=== PATIENT | male | born 1965 | race Caucasian/White ===

== ENCOUNTER → 2016-12-01 | Outpatient (CLI) | payer BC ==
[~2016-12-01] MED LIST: GADAVIST IV PRN
--- NOTE | 2016-12-01 11:08 | DIAGNOSTIC IMAGING REPORT ---
MRI OF THE BRAIN WITHOUT AND WITH IV CONTRAST CLINICAL HISTORY: DEPRESSION W/anxiety, martin AND MEMORY LOSS COMPARISON STUDY: No previous studies for comparison. TECHNIQUE: Utilizing a 1.5 Elva magnet and dedicated coil, multiplanar, multiecho imaging of the brain was performed pre and postcontrast administration. IV administration of 8 mL of Gadavist contrast was uneventful. FINDINGS: Unremarkable signal characteristics throughout. Ventricular system is midline. Internal artery canals are symmetric. No evidence for abnormal postcontrast enhancement. IMPRESSION: Normal study Electronically signed by: Tito Mehta M.D. 12/01/2016 11:07 AM Dictated Date/Time: 12/01/2016 11:05 AM
== END | disposition home or self-care (01) ==
LOC: C.MRIBC 09:32
PROVIDERS: ATTEND Psychiatry & Neurology Neurology
DX: F41.8 Other specified anxiety disorders (principal); F41.3 Other mixed anxiety disorders; R51 Headache

== ENCOUNTER → 2016-12-05 | Outpatient (CLI) | payer BC ==
[2016-12-05 14:42] LABS: BASO % 0.3 %; BASO ABS # 0.04 K/uL (0-0.2); COMPLETE YES; EOS % 1.6 %; HEMATOCRIT 38.7 % (42-52); IG% 0.2 %; LYMPH % 14.6 %; LYMPH ABS # 1.91 K/uL (1.2-3.4); MEAN CORPUSCULAR HEMOGLOBIN 30.9 pg (25-34); MEAN CORPUSCULAR HGB CONC 35.1 g/dl (32-36); MEAN PLATELET VOLUME 10.1 fL (7.4-10.4); NEUT % 76.3 %; PLATELET COUNT 198 K/uL (130-400); WHITE BLOOD COUNT 13.09 K/uL (4.8-10.8)
[2016-12-05 15:22] LABS: BLOOD UREA NITROGEN 11 mg/dl (7-18); BUN/CREATININE RATIO 14.7 (10-20); CARBON DIOXIDE 27 mmol/L (21-32); CHLORIDE 103 mmol/L (98-107); CREATININE 0.73 mg/dl (0.60-1.40); GLUCOSE 84 mg/dl (70-99); POTASSIUM 3.9 mmol/L (3.5-5.1); SODIUM 140 mmol/L (136-145)
[2016-12-05 16:38] LABS: LYME DISEASE AB IGG NEG (NEG); LYME DISEASE AB IGM NEG (NEG)
== END | disposition home or self-care (01) ==
LOC: C.LAB 13:55
PROVIDERS: ATTEND Psychiatry & Neurology Neurology
DX: R51 Headache (principal); F41.8 Other specified anxiety disorders